=== PATIENT | female | born 1945 | race Caucasian/White ===

== ENCOUNTER → 2019-03-03 | Outpatient (CLI) | payer OTHER ==
--- NOTE | 2019-03-03 16:47 | EKG ---
[place] [address] [facility] [place] [address] ELECTROCARDIOGRAM REPORT Name: CHEVY GOMES Wolfgang Room #: [facility]#: [id number] ������������������ Admission: 03/03/19 ������������������ Attend Phys: Moris Puga MD Discharge: ������������������ Date of : 47 Report #: [id number] ����������������������������������������������������������������� [id number] THIS REPORT FOR: //name// [facility] Test Date: 2019-03-03 Test Time: 15:19:46 Pat Name: CHEVY GOMES Department: Room: Gender: F Media Marketing Manager: [facility] : 1945 Requested By: Moris Puga Order Number: [id number] MD: Moris Gambino Measurements Intervals [place] Rate: 71 P: 10 NC: 190 QRS: -12 QRSD: 93 T: 44 QT: 375 QTc: 408 Interpretive Statements Sinus rhythm Low voltage Poor R wave progression Compared to ECG 03/07/2002 17:54:41 No significant changes Electronically Signed On 03-03-2019 16:47:01 CDT by Moris Gambino [email or web address] ��������������������������������������������� <ELECTRONICALLY SIGNED> ���������������������������������������� By: Moris Gambino MD, [facility] ��������������������������������������������� 03/03/19 [id number] Moris Gambino MD, FACC /EPI
== END ==
LOC: CV 14:46
DX: Z01.812 Encounter for preprocedural laboratory examination (principal)